=== PATIENT | female | born 1955 | race African-American/Black ===

== ENCOUNTER 2018-05-23 15:43 | Emergency (ER) | payer MEDICARE, MEDICAID ==
[~2018-05-23] VITALS: Ht 162.6 cm; Wt 63.0 kg
[2018-05-23] MEDS ORDERED: KETOROLAC 30MG/ML VIAL IM ONE (20:15)
[2018-05-23] MEDS ORDERED: CYCLOBENZAPRINE 10MG TABLET PO SCH (20:15)
[2018-05-23] MEDS ORDERED: MORPHINE SULFATE 10 MG/ML CPJ IM ONE (22:00)
[2018-05-24 00:20] VITALS: BP 142/82
== END 2018-05-24 00:30 | disposition home or self-care (01) ==
LOC: ER 16:36
DX: M54.40 Lumbago with sciatica, unspecified side (principal); G89.29 Other chronic pain; M25.551 Pain in right hip; E11.9 Type 2 diabetes mellitus without complications; I10 Essential (primary) hypertension; V43.12XA Car passenger injured in collision with other type car in nontraffic accident, initial encounter; Y92.413 State road as the place of occurrence of the external cause; Y93.89 Activity, other specified; Y99.8 Other external cause status
CPT/HCPCS: 72100; 73522; 96372; 99284; J1885; J2270; J7030